=== PATIENT | male | born 1940 | race Caucasian/White ===

== ENCOUNTER 2016-07-30 16:21 | Inpatient (IN) | payer MEDICARE ==
[~2016-07-30] VITALS: Ht 185.4 cm; Wt 99.2 kg
[2016-07-30 16:40] VITALS: BP 107/70; PULSE 121; RESP 12; O2SAT 95
--- NOTE | 2016-07-30 18:03 | ED.REPORT ---
HPI- Male Date of Service July 30, 2016 ED Provider: Kris Pearson MD The pt is a 76 y/o male w/ a hx of urine infections, and colon cancer presenting to the ED complaining of dysuria onset 5 days ago. The pain is intermittent and he experiences an urgency to urinate. He also is experiencing nausea. His last UTI was a month ago, for which he was given antibiotics for, but he was not hospitalized. He saw a Dr. Newman, urologist for his UTI, [phone]. He reports feeling "pretty good" right now. Denies cough, SOB, vomiting , rash. Nursing Notes Stated Complaint: URINARY TRACT INFECTION Chief Complaint: General Complaint Nursing Notes Reviewed: Yes ([employer] not reconciled) Allergies: Coded Allergies: No Known Allergies (Unverified , 07/30/16) Scheduled Aspirin (Aspirin) 325 Mg Tablet 325 MG PO DAILY Finasteride (Finasteride) 5 Mg Tablet 5 MG PO DAILY Insulin Glargine (Lantus U100 Solostar Insulin Pen) 100 Unit/1 Ml Insuln.pen 44 UNIT SUBQ HS Metoprolol Tartrate (Metoprolol Tartrate) 25 Mg Tablet 25 MG PO BID Mirtazapine (Mirtazapine) 15 Mg Tablet 15 MG PO HS Multivitamin (Multivitamins) 1 Each Capsule 1 EACH PO DAILY Pantoprazole DR (Pantoprazole DR) 40 Mg Tablet.dr 40 MG PO QAM PredniSONE (PredniSONE) 1 Mg Tab 1 MG PO Q2DAY alternate with 2mg every other day PredniSONE (PredniSONE) 1 Mg Tab 2 MG PO Q2DAY alternate with 1mg every other day Tamsulosin (Flomax) 0.4 Mg Capsule 0.4 MG PO DAILY Scheduled PRN Simethicone (Gas-X) 80 Mg Tablet 80 MG PO QID PRN PRN For Epigastric Distress Tramadol (Tramadol) 50 Mg Tablet 50-100 MG PO TID PRN PRN For Pain General Time Seen by MD: 18:01 Chief Complaint Dysuria Hx Obtained From: Patient Arrived By: Walk-in Onset Occurred: 5 days ago Symptom Duration: Waxes and wanes Recent Healthcare: No recent hospitalization, Recent doctor visit Similar Sx Previous: Yes Past Medical History Past Medical History polycythemia vera Colon cancer Past Surgical History Gall stone removal Colon and rectum removal Smoking History Unknown if Ever Smoker Social History Other Social History: Good social support Ambulatory Status Independent Review of Systems GI: Reports: Nausea, Denies: Vomiting Male: Reports Dysuria Skin: Denies Rash Complete sys rev & neg: except as marked. Respiratory: Denies: Non-productive cough, Shortness of breath Physical Exam Initial Vital Signs Vital Signs (First) Date Time Temp Pulse Resp B/P Pulse Ox O2 Delivery O2 Flow Rate FiO2 07/30/16 16:40 38.0 121 12 107/70 95 Room Air Initial VS: Reviewed, Vital signs abnormal (fever, tachycardic) Male Genitourinary: No mass, No lesions or rash General/Constitutional: Awake, Alert Fatigued Abdomen: Atraumatic, Soft, Non-tender Colostomy bag Skin: Atraumatic, Color NL, No rash, Warm, Dry Color / Condition: Negative: Diaphoresis present Head / Eyes: Atraumatic, Normocephalic ENT: Atraumatic, Airway patent Neck: Atraumatic, Supple, Full range of motion Respiratory / Chest: Atraumatic, Breath sounds NL, Breath sounds = bilat, No respiratory distress, No rales, No rhonchi, No wheezing Not tachypneic or hypoxic Cardiovascular: Regular rhythm, Heart sounds NL Heart Rate / Rhythm: Positive: Tachycardia Portocath in L chest Back: Atraumatic, Full range of motion Neurologic: Speech NL Mental Status: Positive: Confused ( reports waxing and waning confusion ) Interpretation & Diagnostics Lab Results Interpretation Result Diagram: 07/30/160 07/30/16 183 Test 07/30/16 18:30 07/30/16 20:50 White Blood Count 11.2th/mm3 (3.8-10.1) Red Blood Count 4.29mil/mm3 (4.40-5.80) Hemoglobin 12.2g/dL (13.8-17.2) Hematocrit 36.1% (41.0-50.0) Mean Corpuscular Volume 84.1fL (81-100) Mean Corpuscular Hemoglobin 28.4pg (27.0-35.0) Mean Corpuscular Hemoglobin Concent 33.8% (32.0-37.0) Red Cell Distribution Width 14.2% (12.3-15.4) Platelet Count 174bil/L (150-400) Neutrophils (%) (Auto) 82.1% (40-74) Lymphocytes (%) (Auto) 7.6% (14-46) Monocytes (%) (Auto) 8.9% (4-12) Eosinophils (%) (Auto) 0.4% (0-5) Basophils (%) (Auto) 0.7% (0-3) Sodium Level 137mEq/L (134-144) Potassium Level 4.1mEq/L (3.5-5.2) Chloride Level 101mEq/L (97-108) Carbon Dioxide Level 22mmol/L (18-29) Blood Urea Nitrogen 16mg/dL (8-27) Creatinine 0.88mg/dL (0.76-1.27) Estimat Glomerular Filtration Rate 90mL/min (>59) Glucose Level 200mg/dL (60-99) Lactic Acid Level 1.0mmol/L (0.4-2.0) Calcium Level 9.1mg/dL (8.5-10.1) Total Bilirubin 0.8mg/dL (0.0-1.2) Aspartate Amino Transf (AST/SGOT) 23U/L (0-50) Alanine Aminotransferase (ALT/SGPT) 18U/L (0-44) Alkaline Phosphatase 156U/L (25-160) Total Protein 6.7g/dL (6.4-8.4) Albumin 3.4g/dL (3.4-5.0) Urine Color Yellow (YELLOW) Urine Appearance Turbid (CLEAR,HAZY) Urine pH 5.0 (5.0-8.0) Urine Specific Menan 1.020 (1.003-1.035) Urine Protein 30mg/dL (NEG,TRACE) Urine Glucose (UA) Negativemg/dL (NEGATIVE) Urine Ketones Negativemg/dL (NEGATIVE) Urine Occult Blood Moderate (NEGATIVE) Urine Nitrite Negative (NEGATIVE) Urine Bilirubin Negative (NEGATIVE) Urine Urobilinogen Normalmg/dL (NORMAL) Urine Leukocyte Esterase Large (NEGATIVE) Urine RBC 0-2/hpf (0-2) Urine WBC >50/hpf (0-5) Urine Epithelial Cells Occasional/hpf (NONE-MOD) Urine Crystals None seen (NONE SEEN) Urine Bacteria None/hpf (NONE-FEW) Urine Hyaline Casts None/lpf (NONE) Urine Granular Casts None seen (NONE SEEN) Urine Waxy Casts None seen (NONE SEEN) Urine Red Blood Cell Casts None seen (NONE SEEN) Urine White Blood Cell Casts None seen (NONE SEEN) Urine Mucus None seen (None Seen) Urine Trichomonas None seen (NONE SEEN) Urine Yeast Many (NONE SEEN) Urinalysis Comment None Urine Culture Reflexed Indicated Lab Results Interpretation: CBC positive leukocytosis CMP mild hyperglycemia Lactic acid normal Blood cultures 2 pending Urine with greater than 50 white cells per high-powered field, but interestingly no bacteria are visualized remains the most likely source ECG Interpretation ECG Interpretation: Rate 104 Sinus tachycardia Multiple PVCs Non Specific ST depression of V4,V5,V6 No previous EKG available for comparison Time: 19:34 Interpreted by: ED physician Re-Eval/Medical Decision Med Decision/Clinical Course This is a 76-year-old male presents with worsening urinary symptoms for several days. Now has developed fevers and chills and waxing waning mental status consistent with delirium today according to the . He is currently mentating normally at present. The patient is followed by urology down a [place], [place] (See [facility] for office contact info, it is after-hours now so not able to get records) reports he was treated for some type of urinary tract infection last month. In the department he is febrile, tachycardic. He has also had a previous colon cancer with residual adrenal insufficiency and is unwilling milligram of prednisone daily. The patient receive IV fluids, Tylenol, he was covered with ceftriaxone with laboratories and clinical history again suggesting UTI (greater than 50 white cells per high-power field, although there is no overt bacteria on urinalysis). Additionally given his history of adrenal insufficiency received empiric hydrocortisone. He has had no hypotension or overt hemodynamic instability beyond mild tachycardia which is improving with fluids. The plan is admission. However at this time being informed there may not be any beds available for admission, so a bed search is being initiated. Ultimately after several hours, a bed was made available here at [facility], so the patient is being admitted and the case discussed with the hospitalist. Source of Hx: Old records (none in EMR) Re-Evaluation/Progress : Time of Eval: 22:32 Patient Status: Condition improved Re-Evaluation/Progress Note: May not be any beds available for admit, bed search starting Consultation : Referral / Consult Name: Benedicto Cullen MD Consulted With: Hospitalist Call Returned at: 23:24 Spray Drier: Will see patient, Agrees with eval, Agrees with plan, Accepts admit Differential Diagnosis: Positive: Cystitis, acute, Pyelonephritis, acute, Urinary tract infection, Negative: Abrasion, Abscess, Cellulitis, Inguinal hernia left, Inguinal hernia right, Necrotizing fasciitis, Priapism, Testicular torsion left, Testicular torsion right Counseled Regarding: Diagnosis, Lab results, Need for admission Discharge & Departure Impression: Primary Impression: Urinary tract infection Urinary tract infection type: acute pyelonephritis Qualified Code: N10 - Acute pyelonephritis Additional Impressions: Delirium Sepsis Sepsis type: sepsis due to unspecified organism Qualified Code: A41.9 - Sepsis, unspecified organism Adrenal insufficiency ([place]'s disease) Disposition: ADMITTED TO HOSPITAL Discharge Condition All VS Reviewed: Yes Condition: Stable Scribe Attestation Portions of this note were transcribed by Charles Rodriguez. I, Dr. Pearson personally performed the history, physical exam and medical decision-making; I reviewed and confirmed the accuracy of the information in the transcribed note. Signed by : Radha Barrios, 07/30/16 and 1920. Full Interpretation & Diagnost Lab Results Interpretation Result Diagram: 07/30/16 1830 07/30/16 1830 Test 07/30/16 18:30 07/30/16 20:50 White Blood Count 11.2th/mm3 (3.8-10.1) Red Blood Count 4.29mil/mm3 (4.40-5.80) Hemoglobin 12.2g/dL (13.8-17.2) Hematocrit 36.1% (41.0-50.0) Mean Corpuscular Volume 84.1fL (81-100) Mean Corpuscular Hemoglobin 28.4pg (27.0-35.0) Mean Corpuscular Hemoglobin Concent 33.8% (32.0-37.0) Red Cell Distribution Width 14.2% (12.3-15.4) Platelet Count 174bil/L (150-400) Neutrophils (%) (Auto) 82.1% (40-74) Lymphocytes (%) (Auto) 7.6% (14-46) Monocytes (%) (Auto) 8.9% (4-12) Eosinophils (%) (Auto) 0.4% (0-5) Basophils (%) (Auto) 0.7% (0-3) Sodium Level 137mEq/L (134-144) Potassium Level 4.1mEq/L (3.5-5.2) Chloride Level 101mEq/L (97-108) Carbon Dioxide Level 22mmol/L (18-29) Blood Urea Nitrogen 16mg/dL (8-27) Creatinine 0.88mg/dL (0.76-1.27) Estimat Glomerular Filtration Rate 90mL/min (>59) Glucose Level 200mg/dL (60-99) Lactic Acid Level 1.0mmol/L (0.4-2.0) Calcium Level 9.1mg/dL (8.5-10.1) Total Bilirubin 0.8mg/dL (0.0-1.2) Aspartate Amino Transf (AST/SGOT) 23U/L (0-50) Alanine Aminotransferase (ALT/SGPT) 18U/L (0-44) Alkaline Phosphatase 156U/L (25-160) Total Protein 6.7g/dL (6.4-8.4) Albumin 3.4g/dL (3.4-5.0) Urine Color Yellow (YELLOW) Urine Appearance Turbid (CLEAR,HAZY) Urine pH 5.0 (5.0-8.0) Urine Specific Menan 1.020 (1.003-1.035) Urine Protein 30mg/dL (NEG,TRACE) Urine Glucose (UA) Negativemg/dL (NEGATIVE) Urine Ketones Negativemg/dL (NEGATIVE) Urine Occult Blood Moderate (NEGATIVE) Urine Nitrite Negative (NEGATIVE) Urine Bilirubin Negative (NEGATIVE) Urine Urobilinogen Normalmg/dL (NORMAL) Urine Leukocyte Esterase Large (NEGATIVE) Urine RBC 0-2/hpf (0-2) Urine WBC >50/hpf (0-5) Urine Epithelial Cells Occasional/hpf (NONE-MOD) Urine Crystals None seen (NONE SEEN) Urine Bacteria None/hpf (NONE-FEW) Urine Hyaline Casts None/lpf (NONE) Urine Granular Casts None seen (NONE SEEN) Urine Waxy Casts None seen (NONE SEEN) Urine Red Blood Cell Casts None seen (NONE SEEN) Urine White Blood Cell Casts None seen (NONE SEEN) Urine Mucus None seen (None Seen) Urine Trichomonas None seen (NONE SEEN) Urine Yeast Many (NONE SEEN) Urinalysis Comment None Urine Culture Reflexed Indicated X-Ray Chest Interpretation Chest Xray Interpretation: IMPRESSION: Patchy opacity in left lung base which represent atelectasis or pneumonia. Please correlate with clinical and laboratory data. Dictated by: Marzena Peña MD, PhD on 07/30/2016 at 18:56 Approved by: Marzena Peña MD, PhD on 07/30/2016 at 18:56 View: Portable, 1 view Interpretation / Wet Read by: Interpret - Radiologist Kris Pearson MD July 30, 2016 18:03 Charles Rodriguez July 30, 2016 18:27
[2016-07-30] MEDS ORDERED: 0.9% Sodium Chloride 1,000 ML IV ONE (18:05)
[2016-07-30 18:40] LABS: BASOPHILS % (AUTO) 0.7 % (0-3); EOSINOPHILS % (AUTO) 0.4 % (0-5); MONOCYTES % (AUTO) 8.9 % (4-12); Mean Corpuscular Hemoglobin 28.4 pg (27.0-35.0); Mean Corpuscular Volume 84.1 fL (81-100); NEUTROPHILS % (AUTO) 82.1 % (40-74); Platelet Count 174 bil/L (150-400)
[2016-07-30] MEDS ORDERED: cefTRIAXone Inj 2,000 MG in Dextrose 5% Minibag Plus 50 ML IV ONE (18:40)
--- NOTE | 2016-07-30 18:58 | DRSVH ---
PROCEDURE: X-RAY CHEST ONE VIEW, PORTABLE ([id number]) INDICATIONS: fever TECHNIQUE: One view of the chest was acquired. COMPARISON: None. FINDINGS: Surgical changes and devices: Left chest wall Port-A-Cath is noted. Lungs and pleura: Patchy opacity noted in the left lung base. Trace left sided pleural effusion not ed. Mediastinum: Mediastinal contours appear normal. Heart size is normal. Bones and chest wall: No suspicious bony lesions. Overlying soft tissues appear unremarkable. IMPRESSION: Patchy opacity in left lung base which represent atelectasis or pneumonia. Please corre late with clinical and laboratory data. Dictated by: Marzena Peña MD, PhD on 07/30/2016 at 18:56 Approved by: Marzena Peña MD, PhD on 07/30/2016 at 18:56
[2016-07-30] MEDS ORDERED: Hydrocortisone 50 mg/mL 2 mL Inj IVPUSH ONE (19:40)
[2016-07-30] MEDS ORDERED: PANT40TA3 PO (20:14)
[2016-07-30] MEDS ORDERED: METO25TA6 PO (20:14)
[2016-07-30] MEDS ORDERED: TRAM50TA2 PO (20:14)
[2016-07-30] MEDS ORDERED: PRD1T PO (20:14)
[2016-07-30] MEDS ORDERED: SIME80TA53 PO (20:14)
[2016-07-30] MEDS ORDERED: INSU100I13 SUBQ (20:14)
[2016-07-30] MEDS ORDERED: MIRT15TA6 PO (20:14)
[2016-07-30] MEDS ORDERED: TAMS0.4C98 PO (20:14)
[2016-07-30] MEDS ORDERED: FINA5TAB9 PO (20:14)
[2016-07-30] MEDS ORDERED: ASPI325T32 PO (20:14)
[2016-07-30] MEDS ORDERED: MULT1CAP33 PO (20:14)
[2016-07-30 21:35] LABS: APPEARANCE,URINE TURBID (CLEAR,HAZY); COLOR,URINE YELLOW (YELLOW); OCCULT BLOOD,URINE MODERATE (NEGATIVE); UROBILINOGEN,URINE NORMAL (NORMAL); YEAST,URINE MANY (NONE SEEN)
[2016-07-30 22:28] VITALS: BP 136/75; PULSE 89; RESP 18; O2SAT 95
[2016-07-30] MEDS ORDERED: Polyethylene Glycol (PEG) 17 Gm Powder PO PRN (23:40)
[2016-07-30] MEDS ORDERED: Alum-Mag Hydrox-Simeth 30 mL Suspension PO PRN (23:40)
[2016-07-30] MEDS ORDERED: Ondansetron 2 mg/mL 2 mL Inj IVPUSH PRN (23:40)
[2016-07-31] VITALS (9 sets, daily range): BP systolic 113–149; BP diastolic 65–75; PULSE 68–110; RESP 16–20; O2SAT 95–99
[2016-07-31] MEDS: 0.9% Sodium Chloride 1,000 ML IV SCH ×3 (01:20→20:59)
--- NOTE | 2016-07-31 01:37 | PCM.HPMED ---
Subjective Date of Service July 31, 2016 Primary Provider: Admitting Physician: Benedicto Cullen MD Primary Care Physician: Meagan Attending Physician: Benedicto Cullen MD Chief Complaint: General illness. History of Present Illness: Mr. Adal Robert is a very pleasant 76-year-old gentleman presenting to the emergency department with complaints of dysuria for 5 days. He reports fevers and chills and waxing and waning mental status consistent with delirium, according to his who is a nurse. He reports long history of difficult to control urinary tract infections. He is followed by urology from [facility], Dr. Newman, urologist for his UTI, . Patient states that one month ago following complicated endoscopic removal of inflamed choledocholithiasis status post cholecystectomy, he develops another UTI for which she was treated in [facility]. He has a complicated past medical history significant for colon cancer with total colectomy and ostomy roughly 18 months ago with unspecified rounds of chemotherapy. Residual adrenal insufficiency, He also has insulin requiring diabetes with very poor control over the past year with blood sugars as high as 240 daily. He reports confusion , significant dysuria, abdominal pain, fevers, mild nausea. He denies vomiting , syncope, chest pain, shortness of breath, change in ostomy output, hematochezia, hematemesis, hematuria. He also reports significant weight loss of 30 pounds over the past 3 months "without trying." He admits that his appetite has significantly decreased since his total colectomy roughly 18 months ago. Upon admission to this [facility] emergency department vitals are as follows; temperature 38.0, pulse of 121, respiration rate 12, blood pressure 107/70, pulse ox 95% on room air. White count 11.2, hemoglobin 12.2, platelets 174, neuts 82.1, lymph 7.6. Sodium 137 potassium 4.1 chloride 101 carbon dioxide 22 16 creatinine 0.88 glucose 200, lactic acid 1.0 AST ALT alkaline phosphatase normal. UA; yellow, turbid, urine protein 30, moderate occult blood, large leukocyte esterase, greater than 50 white cell count, occasional epithelials, no bacteria, no casts, many yeast. The patient receive IV fluids, Tylenol, he was covered with ceftriaxone with laboratories and clinical history again suggesting UTI (greater than 50 white cells per high-power field, although there is no overt bacteria on urinalysis). Additionally given his history of adrenal insufficiency received empiric hydrocortisone. He has had no hypotension or overt hemodynamic instability beyond mild tachycardia which is improving with fluids. Review of Systems: A comprehensive review of systems was conducted with the patient and found to be negative except as above in the History of Present Illness. Allergies Coded Allergies: No Known Allergies (Unverified , 07/30/16) Home Medications Aspirin (Aspirin) 325 Mg Tablet 325 MG PO DAILY Finasteride (Finasteride) 5 Mg Tablet 5 MG PO DAILY Insulin Glargine (Lantus U100 Solostar Insulin Pen) 100 Unit/1 Ml Insuln.pen 44 UNIT SUBQ HS Metoprolol Tartrate (Metoprolol Tartrate) 25 Mg Tablet 25 MG PO BID Mirtazapine (Mirtazapine) 15 Mg Tablet 15 MG PO HS Multivitamin (Multivitamins) 1 Each Capsule 1 EACH PO DAILY Pantoprazole DR (Pantoprazole DR) 40 Mg Tablet.dr 40 MG PO QAM PredniSONE (PredniSONE) 1 Mg Tab 1 MG PO Q2DAY alternate with 2mg every other day PredniSONE (PredniSONE) 1 Mg Tab 2 MG PO Q2DAY alternate with 1mg every other day Tamsulosin (Flomax) 0.4 Mg Capsule 0.4 MG PO DAILY PMH polycythemia vera Colon cancer Insulin requiring diabetes. Sleep apnea Recurrent urinary tract infections Surgical History Gall stone removal Colon and rectum removal Ostomy in place Family History Could not report. Social History Hx Alcohol Use: No Hx Substance Use: No Hx Tobacco Use: No Additional Information Lives at home with roommate. Exam Vital Signs Vital Sign - Last Date Time Temp Pulse Resp B/P Pulse Ox O2 Delivery O2 Flow Rate FiO2 07/31/16 00:36 108 20 136/75 97 Room Air 07/31/16 00:31 36.6 Intake and Output 07/30/16 07/30/16 07/31/16 Cumulative From/Thru 15:00 23:00 07:00 07/30/16 16:40 - 07/31/16 00:31 Intake Total 1000 ml 1000 ml Balance 1000 ml 1000 ml Intake IV Total 1000 ml 1000 ml Bladder Scan Volume Amount 201 MLS. Exam General: Elderly gentleman sitting in bed in no acute distress. well-developed , well-nourished, appropriately interactive HEENT: Normocephalic, atraumatic. External ears without defect. Pupils equal, round, and reactive to light and accommodation. Anicteric sclerae, moist conjunctivae, and no lid lag. Oropharynx free of erythema and cobble stoning with moist mucosa. Neck: Supple with full range of motion. No jugular venous distension. No bruits. No lymphadenopathy or thyromegaly. Cardiovascular: Regular rate and rhythm with moderate systolic flow murmurs, with no rubs, or gallops appreciated Pulmonary: Clear to auscultation bilaterally with no crackles, wheezes, or rhonchi. Normal respiratory effort with no use of accessory muscles. Abdomen: Bowel tones present. Soft, nontender, nondistended. No hepatosplenomegaly or masses appreciated. Extremities: No clubbing, cyanosis, edema, or lymphadenopathy appreciated. Skin: Normal temperature, turgor, and texture; no rash, ulcers, or subcutaneous nodules appreciated. Neurological: Cranial nerves grossly intact. Normal muscle strength, tone, and bulk. Reflexes, coordination, and sensory function within normal limits. No known gait impairment. Psychiatric: Normal mood and affect. Alert and oriented to person, place, and time. Genitourinary: Intertriginous skin folds with very mild erythema. Penis nonfluctuant no erythema or edema, no drainage. Post chemotherapy skin changes slightly contracted. Lab and Diagnostics Result Diagram: 07/30/16182907/30/161829 X-Rays, CTs and MRIs X-RAY CHEST ONE VIEW, PORTABLE IMPRESSION: Patchy opacity in left lung base which represent atelectasis or pneumonia. Please correlate with clinical and laboratory data. Dictated by: Marzena Peña MD, PhD on 07/30/2016 at 18:56 Assessment & Plan Mr. Adal Robert is a very pleasant 76-year-old gentleman presenting to the emergency department with complaints of dysuria for 5 days. He reports fevers and chills and waxing and waning mental status consistent with delirium, according to his who is a nurse. He reports long history of difficult to control urinary tract infections. He is followed by urology from [facility], Dr. Newman, urologist for his UTI, . Patient states that one month ago following complicated endoscopic removal of inflamed choledocholithiasis status post cholecystectomy, he develops another UTI for which she was treated in [facility]. He has a complicated past medical history significant for colon cancer with total colectomy and ostomy roughly 18 months ago with unspecified rounds of chemotherapy. Residual adrenal insufficiency, He also has insulin requiring diabetes with very poor control over the past year with blood sugars as high as 240 daily. He reports confusion , significant dysuria, abdominal pain, fevers, mild nausea. He denies vomiting , syncope, chest pain, shortness of breath, change in ostomy output, hematochezia, hematemesis, hematuria. He also reports significant weight loss of 30 pounds over the past 3 months "without trying." He admits that his appetite has significantly decreased since his total colectomy roughly 18 months ago. 1. Sepsis, present on admission. Improving. - Admission temperature 38.0, pulse 121, white count 11.2, neuts 82.1, UA positive. - Urinary tract infection most likely source, Possible bacteria, more likely fungal. - Significant risk factors with highly uncontrolled diabetes for one year, and long history of recurrent urinary tract infections. - Fungitell ordered. It's rare, but may consider galactomannan test. - Consider infectious disease consult. - Patient on IV ceftriaxone. - Blood cultures 2 pending. - Urinary culture pending. 2. Acute on chronic urinary tract infection, present on admission. Active. - UA; Yellow, turbid, 30 protein, moderate occult blood, large leukocyte esterase, greater than 50 WBC, occasional epithelial, no bacteria, no casts, many yeast. - Urine culture pending. - Treatment as above. 3. Insulin requiring diabetes mellitus, present on admission. Active. - Continue home Lantus. - Carb consistent diet. - A1c pending. - Day team to consider correctional nutritional insulin. 4. Residual adrenal insufficiency. Present on admission. Active. - Patient received hydrocortisone 100 mg stress dose in the ED. - Continue home prednisone regimen. (1 mg and 2 mg alternating doses) 5. BPH, present on admission. Active. - Continue home finasteride 5 mg daily. 6. Significant weight loss, present on admission. Active. - Patient states he has lost 30 pounds in the last 3 months without trying. - Etiology at this point unknown. Risk factors include uncontrolled diabetes and previous history of colon cancer, with total colectomy. 7. Chronic obstructive sleep apnea, present on admission. Active. - O2 nasal cannula at night for now until patient's brings in home CPAP machine. Continue other home medications as follows: Continue home aspirin 325 daily. Continue home metoprolol tartrate 25 mg twice a day. Acetaminophen for mild pain when necessary. Bowel regimen Senna and MiraLAX scheduled and PRN. Zofran when necessary for nausea and vomiting. SubQ heparin held for now. SCDs in place. Disposition: Patient has been admitted under inpatient status. Discharge is dependent upon sepsis and urinary tract infection. Pain Evaluation: Adequate Pain Control Resuscitation Status: CPR: Attempt Resuscitation Attending Statement The patient was seen and examined together with Dr. Murillo on 07/30 and I agree with the history, exam and plan as outlined in the note above. HENRIQUE MURILLO DO July 31, 2016 01:37 Benedicto Cullen MD July 31, 2016 04:49
[2016-07-31] MEDS: cefTRIAXone Inj 2,000 MG in Dextrose 5% Minibag Plus 50 ML IV SCH ×2 (05:59→17:41)
--- NOTE | 2016-07-31 06:18 | NUR ---
Arrival to [facility] room 3025 Patient arrived at 0020. alert and orientedx3 able to make needs known. patient reports "feeling fuzzy, not myself" sleepy. falling asleep during admission assessment. med rec completed with home list. patient reports chronic neck pain relieved with positioning. Patient reports "yeasty" areas in groin. Patient will not let me assess his groin area. buttock is red and blanchable patient upset that I had to look at his butt and states "thats just embarrassing don't" reinforced the importance patient states "I get it but just don't" Patient reports his butt is infected. no infected areas visible. port infusing TKO. vitals stable. patient reports sleep apnea with CPAP. CPOX in place patient desat to 80% on RA. placed on 2L via NC while sleeping. patient states "I will have my bring in my cpap." patient reports burning, pain, hesitancy, with urination. will continue to monitor. Addendum: 07/31/16 at 0624 by HEIDI LOPEZ RN ARRIVAL TO [facility] ROOM 3027 Error in room number
[2016-07-31] MEDS ORDERED: Glucose 40% Oral Gel 15 Gm Tube PO PRN (07:55)
[2016-07-31] MEDS ORDERED: Dextrose 10% 250 ML IV PRN (07:55)
[2016-07-31] MEDS: Pantoprazole 40 mg ER24 Tablet PO SCH (07:58)
[2016-07-31] MEDS: predniSONE 1 mg Tablet PO SCH (08:01)
[2016-07-31] MEDS: Insulin LISPRO 300 Unit/3 mL Inj SUBQ SCH ×4 (08:54→22:00)
[2016-07-31] MEDS ORDERED: predniSONE 1 mg Tablet PO SCH ×2 (09:00)
[2016-07-31] MEDS: 0.9% Sodium Chloride 250 ML IV SCH (09:28)
[2016-07-31] MEDS ORDERED: Sodium Chloride LOK Flush 10 mL Syringe IVFLUSH PRN ×2 (09:30)
[2016-07-31] MEDS ORDERED: HepLOK Flush 100 unit/mL 5 mL Inj IVFLUSH PRN (09:30)
--- NOTE | 2016-07-31 13:38 | NUR ---
Evaluation completed. Please go to "Notes" then click on "Assessments and Notes" (bottom left corner of screen). Then select appropriate discipline tab on top of screen.
--- NOTE | 2016-07-31 16:09 | NUR ---
Social Work-initial assessment: Data:See initial assessment. Pt is a 76 y/o male who was admitted on 07/30/16 for sepsis per H&P. Pt's insurance is [employer] and PCP is Dr. Denilson Vazquez. EMR Reviewed. ROSALIO met with pt and Fabian [phone] to discuss discharge planning, SW role explained. Pt is alert and oriented x3. Pt resides in a [facility] and they are traveling from [place]. Pt does not use any DME and drives. Pt has no HH or SNF history. Pt has no group home care insurance or VA benefits. SW discussed DPOA/ advanced directive, pt confirms he has not completed this and is not interested in any information. Per Pt and they do not anticipate any discharge needs. SW provided phone number and plan on white board in room. No anticipated discharge needs. SW will continue to follow if needs arise. Assessment:Pt who is independent at baseline. Plan:Pt to discharge back to his [facility] when medically stable. No anticipated discharge needs. ROSALIO will continue to follow if needs arise. AUGUSTINE Willis Addendum: 07/31/16 at 1614 by PERFECTO KARIMI Amended: Links added.
[2016-07-31] MEDS: Ketorolac 15 mg/mL Inj IVPUSH PRN (16:27)
--- NOTE | 2016-07-31 18:44 | NUR ---
UOP/Temp Pt seen to be voiding frequently with small amts, averaging 80mL. PVR done, 289mL noted. MD notified. Extra 1x dose of Flomax administered. Pt c/o pain at start of stream and HR noted to increase up to 150 BPM when voiding-tele orders recd. 1x temp noted, provider notified, will continue to monitor.
[2016-07-31] MEDS: Insulin GLARgine 100 Unit/mL Syringe SUBQ SCH ×2 (20:53→20:59)
[2016-08-01] VITALS (9 sets, daily range): BP systolic 131–163; BP diastolic 67–91; PULSE 62–102; RESP 18; O2SAT 97–98
--- NOTE | 2016-08-01 00:20 | PCM.PNMED ---
Subjective Date of Service July 31, 2016 Subjective Patient is seen and examined. 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 He states that his pain is not under control, every time he tries to urinate the pain comes back. If he is not moving her laying still the pain is not happening. Staff says when he gets up to urinate his becoming tachycardic. He has no fevers or chills. States that he had a similar event during the hospitalization when he had colectomy, he had to use a urine Estrella and he did not like it, states that no one will be able to get up Estrella in him because of the level of pain he had to endure. States currently his pain is in the penis when he urinates, it is a deep pain. He denies hematuria, nephrolithiasis. Apparently he declined pain medication prior to this morning. He has no abdominal pain. States that he does have some level of decubitus ulcers are starting as he sits most of the time. Exam Vital Signs Vital Sign - Last Date Time Temp Pulse Resp B/P Pulse Ox O2 Delivery O2 Flow Rate FiO2 07/31/16 06:07 101 07/31/16 05:13 36.4 20 113/70 99 Nasal Cannula 2.00 Intake and Output 07/30/16 07/30/16 07/31/16 Cumulative From/Thru 15:00 23:00 07:00 07/30/16 16:40 - 07/31/16 06:06 Intake Total 1000 ml 585 ml 1585 ml Output Total 250 ml 250 ml Balance 1000 ml 335 ml 1335 ml Intake Oral 190 ml 190 ml IV Total 1000 ml 395 ml 1395 ml Output Urine Total 250 ml 250 ml Bladder Scan Volume Amount 201 MLS. Exam General: Elderly gentleman sitting in bed in no acute distress. well-developed , well-nourished, appropriately interactive HEENT: Normocephalic, atraumatic. External ears without defect. Pupils equal, round, and reactive to light and accommodation. Anicteric sclerae, moist conjunctivae, and no lid lag. . Neck: Supple with full range of motion. No jugular venous distension. Cardiovascular: Regular rate and rhythm with moderate systolic flow murmurs, with no rubs, or gallops appreciated Pulmonary: Clear to auscultation bilaterally with no crackles, wheezes, or rhonchi. Normal respiratory effort with no use of accessory muscles. Abdomen: Bowel tones present. Soft, nontender, nondistended. No hepatosplenomegaly or masses appreciated. Ostomy site is Clean and dry Extremities: No clubbing, cyanosis, edema, or lymphadenopathy appreciated. Skin: Normal temperature, turgor, and texture; no rash, ulcers, or subcutaneous nodules appreciated. Neurological: No focal deficits Psychiatric: Normal mood and affect. Alert and oriented to person, place, and time. IVs and Medications Medications Reviewed: Medications were reviewed in detail Lab and Diagnostics Result Diagram: 07/30/16182907/30/161829 X-Rays, CTs and MRIs X-RAY CHEST ONE VIEW, PORTABLE IMPRESSION: Patchy opacity in left lung base which represent atelectasis or pneumonia. Please correlate with clinical and laboratory data. Dictated by: Marzena Peña MD, PhD on 07/30/2016 at 18:56 Assessment & Plan Mr. Adal Robert is a very pleasant 76-year-old gentleman presenting to the emergency department with complaints of dysuria for 5 days. He reports fevers and chills and waxing and waning mental status consistent with delirium, according to his who is a nurse. He reports long history of difficult to control urinary tract infections. He is followed by urology from [facility], Dr. Newman, urologist for his UTI, . Patient states that one month ago following complicated endoscopic removal of inflamed choledocholithiasis status post cholecystectomy, he develops another UTI for which she was treated in [facility]. He has a complicated past medical history significant for colon cancer with total colectomy and ostomy roughly 18 months ago with unspecified rounds of chemotherapy. Residual adrenal insufficiency, He also has insulin requiring diabetes with very poor control over the past year with blood sugars as high as 240 daily. He reports confusion , significant dysuria, abdominal pain, fevers, mild nausea. He denies vomiting , syncope, chest pain, shortness of breath, change in ostomy output, hematochezia, hematemesis, hematuria. He also reports significant weight loss of 30 pounds over the past 3 months "without trying." He admits that his appetite has significantly decreased since his total colectomy roughly 18 months ago. 1. Sepsis, present on admission. Improving. - Admission temperature 38.0, pulse 121, white count 11.2, neuts 82.1, UA positive. - Urinary tract infection most likely source, Possible bacteria, more likely fungal is really not clear whether this is a bacterial or even fungal infection keeping in mind that fungal and infections are extremely rare even in diabetics. He reports that he has some kind of inflammation going on that resulted in pyuria. He feels that it is important to get his prior records to understand his past history. - Significant risk factors with highly uncontrolled diabetes for one year, and long history of recurrent urinary tract infections. - Consider infectious disease consult: ID is not available in the hospital over the weekend, if patient is still here on Tuesday, hospitalist team may contact Dr. Mitchell - Patient on IV ceftriaxone. - Blood cultures 2 NGTD - Urinary culture pending: NGTD -- The patient does not seem to know the basis of his prior urology visit seems to his urologist. It is not clear whether he was seen for BPH or some kind of strictures. He is currently on finasteride and tamsulosin. -- The bladder scan showed 3 70 mL of retention patient is unable to void even though it has been painful for him pain medications were added ketorolac IV morphine IV -- The patient's prior records from his urologist are requested: However is not clear on a weekend if we can get them --Urologist here at [facility] dr. tinajero is contacted by phone: He states that without the urine culture, and the prior records. He is not much for him to do other than cystoscopy or retrograde urethrogram. He would like for us to try double dose of tamsulosin. 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 Acute on chronic urinary tract infection, present on admission. Active. - UA; Yellow, turbid, 30 protein, moderate occult blood, large leukocyte esterase, greater than 50 WBC, occasional epithelial, no bacteria, no casts, many yeast. - Urine culture pendin: NGTD - Treatment as above. 3. Insulin requiring diabetes mellitus, present on admission. Active. - Continue 1/2 home Lantus.-Patient's Lantus is reduced in half as patient did not need much insulin all day 07/30 and he is still not hypoglycemic order submitted for Lantus 22 units to be given at at bedtime - Carb consistent diet. - A1c pending. 4. Residual adrenal insufficiency. Present on admission. Active. - Patient received hydrocortisone 100 mg stress dose in the ED. - Continue home prednisone regimen. (1 mg and 2 mg alternating doses) 5. BPH, present on admission. Active. - Continue home finasteride 5 mg daily. 6. Significant weight loss, present on admission. Active. - Patient states he has lost 30 pounds in the last 3 months without trying. - Etiology most likely the total colectomy. 7. Chronic obstructive sleep apnea, present on admission. Active. - O2 nasal cannula at night for now until patient's brings in home CPAP machine. Continue other home medications as follows: Continue home aspirin 325 daily. Continue home metoprolol tartrate 25 mg twice a day. Acetaminophen for mild pain when necessary. Bowel regimen Senna and MiraLAX scheduled and PRN. Zofran when necessary for nausea and vomiting. SubQ heparin held for now. SCDs in place. Disposition: Patient has been admitted under inpatient status. Discharge is dependent upon sepsis and urinary tract infection. Pain Evaluation: Pain not Controlled Resuscitation Status: CPR: Attempt Resuscitation Time spent 30 min Ly Sapp DO July 31, 2016 07:10
[2016-08-01] MEDS: Ketorolac 15 mg/mL Inj IVPUSH PRN (04:47)
[2016-08-01] MEDS: cefTRIAXone Inj 2,000 MG in Dextrose 5% Minibag Plus 50 ML IV SCH ×2 (04:55→17:20)
[2016-08-01] MEDS ORDERED: Lidocaine 5% 35.5 Gm Ointment TOPICAL PRN (07:45)
[2016-08-01] MEDS: 0.9% Sodium Chloride 1,000 ML IV SCH ×2 (07:54→17:20)
[2016-08-01] MEDS: Pantoprazole 40 mg ER24 Tablet PO SCH (07:56)
[2016-08-01] MEDS: Insulin LISPRO 300 Unit/3 mL Inj SUBQ SCH ×4 (07:57→21:43)
[2016-08-01] MEDS: 0.9% Sodium Chloride 250 ML IV SCH (08:00)
[2016-08-01] MEDS ORDERED: predniSONE 1 mg Tablet PO SCH (09:00)
--- NOTE | 2016-08-01 10:27 | NUR ---
Social Work-readiness for discharge: Data:EMR Reviewed. Pt is on day 2 of hospitalization for sepsis and UTI per H&P. Pt is not medically for discharge at this time, anticipate 1-2 more days. [facility] . Pt has been up independent in his room. ST is involved with pt, but anticipate home. Pt and declines any services at discharge. Pt's to provide transport home. No anticipated discharge needs. SW will continue to follow if needs arise. Assessment:Pt who is independent at baseline. Plan:Pt to discharge back to [facility] when medically stable. No anticipated discharge needs. SW will continue to follow if needs arise. AUGUSTINE Willis
[2016-08-01 11:21] LABS: Mean Corpuscular Volume 85.7 fL (81-100)
--- NOTE | 2016-08-01 15:07 | NUR ---
UOP/ambulation Pt up and voiding into urinal, noted a decrease in discomfort since yesterday. PVR at 95mL today, down significantly from yesterday. Pt requested to ambulate in the unit, made 1 lap 2 different times. c/o weakness after 2nd lap. at bedside. Pt refuses help with ostomy, empties it himself and or with 's help.
--- NOTE | 2016-08-01 17:07 | DRSVH ---
PROCEDURE: US RETROPERITONEAL SONOGRAM ([id number]) INDICATIONS: fungal infection TECHNIQUE: Real-time scanning was performed of the kidneys and bladder, with image documentation. COMPARISON: None. FINDINGS: Kidneys: Kidneys are normal in size. Right kidney measures 11.9 cm long; left kidney measures 13.6 cm long. Right renal cortical thickness is 1.0 cm; left renal cortical thickness is 1.2 cm. Renal c ortical echotexture is normal. No hydronephrosis or nephrolithiasis. No suspicious solid mass lesio ns. 2.0 x 1.6 x 1.4 cm cyst noted in the right kidney. 2.5 x 2.5 x 1.9 cm cyst noted in the left kid arnulfo. Bladder: The patient voided prior to ultrasound examination. The urinary bladder is not well seen a nd secondary to nondistention and cannot be evaluated. Miscellaneous: No free pelvic fluid. IMPRESSION: Bilateral renal cysts. Dictated by: Marzena Peña MD, PhD on 08/01/2016 at 17:04 Approved by: Marzena Peña MD, PhD on 08/01/2016 at 17:06
[2016-08-01] MEDS: Insulin GLARgine 100 Unit/mL Syringe SUBQ SCH ×2 (21:00→21:42)
--- NOTE | 2016-08-02 00:02 | PCM.PNMED ---
Subjective Date of Service August 02, 2016 Subjective Patient is ambulating in the hallways without the use of walker, feeling much better. He states that there has been significant improvement in his functional ability since coming to the hospital. His is present today during the interview and she states that patient had ureteral stricture in the past, however she is not sure what kind of management was done. Patient's insulin dosing significant relief with increased dose of tamsulosin. He states that he has had yeast urinary infections in the past. He sometimes buys Monistat 7 and uses it. Patient is sometimes breaking down teary eyed. Patient has no other concerns Exam Vital Signs Vital Sign - Last Date Time Temp Pulse Resp B/P Pulse Ox O2 Delivery O2 Flow Rate FiO2 08/01/16 21:11 36.8 62 18 146/72 98 Room Air 08/01/16 04:27 2.00 Intake and Output 08/01/16 08/01/16 08/02/16 Cumulative From/Thru 15:00 23:00 07:00 07/30/16 16:40 - 08/01/16 22:43 Intake Total 989 ml 5383 ml Output Total 790 ml 2110 ml Balance 199 ml 3273 ml Intake Oral 320 ml 1164 ml IV Total 669 ml 4219 ml Output Urine Total 790 ml 2110 ml # Voids 1 # Bowel Movements 1 Exam Gen.: No acute distress HEENT: Normocephalic, atraumatic Heart: Regular rate and rhythm. Lungs: Clear to auscultation or wheezes Abdomen nontender and nondistended ostomy site clean and dry\\ Skin: Port-A-Cath is present on the left chest wall Extremities: Negative for edema exam: Patient declined IVs and Medications IV Fluids Decreased to 30 mL/h normal saline Medications Reviewed: Medications were reviewed in detail Lab and Diagnostics Result Diagram: 08/01/16 1100 08/01/16 1100 X-Rays, CTs and MRIs X-RAY CHEST ONE VIEW, PORTABLE IMPRESSION: Patchy opacity in left lung base which represent atelectasis or pneumonia. Please correlate with clinical and laboratory data. Dictated by: Marzena Peña MD, PhD on 07/30/2016 at 18:56 Retroperitoneal ultrasound 08/01/16 Kidneys: Kidneys are normal in size. Right kidney measures 11.9 cm long; left kidney measures 13.6 cm long. Right renal cortical thickness is 1.0 cm; left renal cortical thickness is 1.2 cm. Renal cortical echotexture is normal. No hydronephrosis or nephrolithiasis. No suspicious solid mass lesions. 2.0 x 1.6 x 1.4 cm cyst noted in the right kidney. 2.5 x 2.5 x 1.9 cm cyst noted in the left kidney. Bladder: The patient voided prior to ultrasound examination. The urinary bladder is not well seen and secondary to nondistention and cannot be evaluated. Miscellaneous: No free pelvic fluid. IMPRESSION: Bilateral renal cysts. Dictated by: Marzena Peña MD, PhD on 08/01/2016 at 17:04 Approved by: Marzena Peña MD, PhD on 08/01/2016 at 17:06 Assessment & Plan Mr. Adal Robert is a very pleasant 76-year-old gentleman presenting to the emergency department with complaints of dysuria for 5 days. He reports fevers and chills and waxing and waning mental status consistent with delirium, according to his who is a nurse. He reports long history of difficult to control urinary tract infections. He is followed by urology from [facility], Dr. Newman, urologist for his UTI, . Patient states that one month ago following complicated endoscopic removal of inflamed choledocholithiasis status post cholecystectomy, he develops another UTI for which she was treated in [facility]. He has a complicated past medical history significant for colon cancer with total colectomy and ostomy roughly 18 months ago with unspecified rounds of chemotherapy. Residual adrenal insufficiency, He also has insulin requiring diabetes with very poor control over the past year with blood sugars as high as 240 daily. He reports confusion , significant dysuria, abdominal pain, fevers, mild nausea. He denies vomiting , syncope, chest pain, shortness of breath, change in ostomy output, hematochezia, hematemesis, hematuria. He also reports significant weight loss of 30 pounds over the past 3 months "without trying." He admits that his appetite has significantly decreased since his total colectomy roughly 18 months ago. 1. Sepsis secondary to Acute on chronic urinary tract infection, present on admission. Bacterial infection is ruled out Active. --- Significant risk factors with highly uncontrolled diabetes for one year, and long history of recurrent urinary tract infections. -- Admission temperature 38.0, pulse 121, white count 11.2, neuts 82.1, UA positive for white cells but no bacteria, culture grew greater than 100,000 CFU yeast: Patient is started on 200 mg fluconazole daily - UA; Yellow, turbid, 30 protein, moderate occult blood, large leukocyte esterase, greater than 50 WBC, occasional epithelial, no bacteria, no casts, many yeast. -- Patient on IV ceftriaxone: Consider stopping on 08/02, patient is significantly better. He will have received at least 3 doses of IV ceftriaxone -- The bladder scan showed 3 70 mL of retention patient is able to void even though it has been painful for him pain medications were added ketorolac IV morphine IV --Urologist here at [facility] dr. tinajero is contacted by phone: He states that without the urine culture, and the prior records. He is not much for him to do other than cystoscopy or retrograde urethrogram. He would like for us to try double dose of tamsulosin. 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 Patient is feeling better. Patient's home done records from his urologist are not received so far. Hospitalist Team will need to try again on . Based on the records and patient presentation Dr. Carter will be available to see the patient if need be. We appreciate his involvement and recommendations. 2. Insulin requiring diabetes mellitus, present on admission. Active. - Continue 1/2 home Lantus.-Patient's Lantus is reduced in half as patient did not need much insulin all day 07/30 and he is still not hypoglycemic order submitted for Lantus 22 units to be given at at bedtime - Carb consistent diet. - A1c =8.4 3. Residual adrenal insufficiency. Present on admission. Active. - Patient received hydrocortisone 100 mg stress dose in the ED. - Continue home prednisone regimen. (1 mg and 2 mg alternating doses) 4. BPH, present on admission. Active. - Continue home finasteride 5 mg daily. -- Tamsulosin 0.8 Mg Daily 5. Significant weight loss, present on admission. Active. - Patient states he has lost 30 pounds in the last 3 months without trying. - Etiology most likely the total colectomy. 6. Chronic obstructive sleep apnea, present on admission. Active. - O2 nasal cannula at night for now until patient's brings in home CPAP machine. Continue other home medications as follows: Continue home aspirin 325 daily. Continue home metoprolol tartrate 25 mg twice a day. Acetaminophen for mild pain when necessary. Bowel regimen Senna and MiraLAX scheduled and PRN. Zofran when necessary for nausea and vomiting. SCDs in place. Disposition: Patient has been admitted under inpatient status. Discharge is dependent upon sepsis and urinary tract infection. Patient is clinically much improved after hydration, improved dose of tamsulosin. Fluconazole treatment is initiated for his fungal infection. He wants to go home to [place] if she is clinically better. Consider ID consult if there is a concern about patient's clinical improvement and progress. Follow fungitell, galactomannan labs. Possible DC in 1-2 days Pain Evaluation: Adequate Pain Control VTE Prophylaxis: Sub-Q Heparin (Unfractionated) VTE Mechanical Devices: Intermittant Pneumatic CD Resuscitation Status: CPR: Attempt Resuscitation Time spent 35 min Ly Sapp DO August 02, 2016 00:02 Ly Sapp DO August 02, 2016 00:02
[2016-08-02] MEDS: 0.9% Sodium Chloride 1,000 ML IV SCH (00:29)
[2016-08-02 00:42] VITALS: BP 142/72; PULSE 72; RESP 20; O2SAT 98
[2016-08-02 05:20] VITALS: PULSE 81; RESP 21; O2SAT 96
[2016-08-02] MEDS: cefTRIAXone Inj 2,000 MG in Dextrose 5% Minibag Plus 50 ML IV SCH (05:34)
--- NOTE | 2016-08-02 06:00 | NUR ---
Voiding/activity Patient reports improvement voiding. voiding output increased to 425mls. patient denies pain/discomfort with voiding. IVF infusing at 30mls/hr. vitals stable. patient up to bedside using urinal independently. Patient ambulated down hallway with , steady gait observed. tolerated activity well.
--- NOTE | 2016-08-02 06:07 | NUR ---
Refusal of BP Patient refused to have AM BP taken. patient stated that BP cuff was too tight and was killing his arm. BP cuff shows 180 pressure. BP cuff released immediately after patient complained. patient agreed to try one more time. Patient again complained about the cuff being too tight. patient pumped his fists the BP cuff was reading 90 pressure and kept increasing due to patient pumping his fist. informed patient that when he pumps his fist it is causing the machine to pump up again. blood pressure cuff pressure released patient reported that it was hurting him and he was uncomfortable. Patient refused to have me complete a manual blood pressure at this time. patient not having any s/s of hypo/hypertenstion will continue to monitor.
[2016-08-02] MEDS: Insulin LISPRO 300 Unit/3 mL Inj SUBQ SCH ×2 (08:00→12:00)
[2016-08-02] MEDS: Pantoprazole 40 mg ER24 Tablet PO SCH (08:14)
[2016-08-02] MEDS: predniSONE 1 mg Tablet PO SCH (08:15)
[2016-08-02 08:26] LABS: BASOPHILS % (AUTO) 0.3 % (0-3); EOSINOPHILS % (AUTO) 3.9 % (0-5); MONOCYTES % (AUTO) 12.5 % (4-12); Mean Corpuscular Hemoglobin 27.8 pg (27.0-35.0); Mean Corpuscular Volume 84.8 fL (81-100); NEUTROPHILS % (AUTO) 66.3 % (40-74); Platelet Count 182 bil/L (150-400)
[2016-08-02 08:34] LABS: Magnesium 1.7 mg/dL (1.6-2.6)
[2016-08-02 09:27] VITALS: BP 151/76; PULSE 70; RESP 18; O2SAT 98
[2016-08-02] MEDS: 0.9% Sodium Chloride 250 ML IV SCH (09:28)
[2016-08-02 09:58] VITALS: PULSE 78
[2016-08-02] MEDS ORDERED: Potassium Chloride 20 mEq SR Tablet PO ONE (10:10)
[2016-08-02] MEDS ORDERED: KCl 40 mEq/D5W 500 mL 40 MEQ in IV Premix 500 EACH IV ONE (10:10)
[2016-08-02] MEDS ORDERED: Polyethylene Glycol (PEG) 17 Gm Powder PO PRN (12:20)
[2016-08-02] MEDS ORDERED: Alum-Mag Hydrox-Simeth 30 mL Suspension PO PRN (12:20)
[2016-08-02] MEDS ORDERED: Ondansetron 2 mg/mL 2 mL Inj IVPUSH PRN (12:20)
[2016-08-02] MEDS ORDERED: FLUC200T5 PO (13:36)
--- NOTE | 2016-08-02 13:36 | PCM.DIMED ---
Discharge Instructions Date of Service August 02, 2016 Dates of Hospitalization July 30, 2016 at 23:06 Discharge Diagnosis Discharge Diagnosis # Acute sepsis secondary to acute urinary tract infection, present on admission. # Acute [employer] urinary tract infection (UTI), present on admission # Chronic diabetes mellitus, present on admission. - HgA1C 8.4 # Chronic adrenal insufficiency. Present on admission. # Chronic benign prostatic hypertrophy (BPH), present on admission. Active. # Significant weight loss, present on admission. Active. - Recommend close followup with primary care provider for further workup # Chronic obstructive sleep apnea on home CPAP, present on admission. Diet Discharge Diet: Low fat, Low Sodium, Heart Healthy, Diabetic Activity Discharge Activity: No restrictions Call your provider Call your provider for: Fever or Chills, Shortness of breath, Vomitting, Excessive diarrhea Patient Instructions Patient Instructions Seek immediate medical attention if any new or worsening signs or symptoms occur. Follow-up plan 1. Followup with your primary care provider and urologist in 1-2 weeks. Tex Beasley August 02, 2016 13:36
[2016-08-02] MEDS ORDERED: TAMS0.4C98 PO (13:44)
--- NOTE | 2016-08-02 14:20 | NUR ---
Social Work-Discharge: Data:EMR Reviewed. Pt is on day 3 of hospitalization for sepsis and UTI per H&P. Pt is medically cleared for discharge and is independent at baseline. Pt has been up independent in his room. ST has cleared pt for home. Pt's to provide transport home. No anticipated discharge needs. Assessment:Pt who is independent at baseline. Plan:Pt to discharge back to [facility] via POV. No anticipated discharge needs. AUGUSTINE Lilly
--- NOTE | 2016-08-02 15:10 | NUR ---
Discharge Pt discharged at this time. All belongings gathered and returned to pt, VSS, no complains of increased pain or confusion. Hard copy of new prescriptions given to pt to fill. Tele monitor removed and Port de-accessed by IV therapy. Discharge packet printed and reviewed with pt and spouse. Pt taken from [facility] in wheelchair by RN to front entrance, to be transported home in private vehicle driven by spouse.
--- NOTE | 2016-08-02 17:15 | CONS ---
[address] [address] CONSULTATION REPORT PATIENT: CHELSEA HILARIO : 1940 MR#: [id number] ADMIT: 07/30/2016 JOB ID: [id number] DATE OF SERVICE: 08/02/[address] Beasley for this timely consult. REASON FOR CONSULTATION: Dana pyelonephritis. 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 He was up visiting a relative of his 's in our local area over the past week or so when he developed the onset about five days prior to his admission on July 31 of severe dysuria, urgency, and frequency. This gradually worsened and became associated with fevers, chills and eventually delirium. There may also have been some component of nausea. This led to his admission on July 31 with consideration of complicated urinary tract infection with mental status changes. The patient was initiated on broad-spectrum antibiotics appropriate for urinary tract infections and slowly improved. Interestingly, it turned out that his only positive in the urine culture was Dana albicans and ID is consulted for that. The patient was started on fluconazole after it was recognized it was Dana in his urine but interestingly, he was already getting better by that point. He denies any associated sore throat, pulmonary symptoms, or GI symptoms. Note that the patient is status post colon cancer surgery with formation of a colostomy about three years ago and more recently, he underwent an ERCP with sphincterotomy for retained common duct stones related to cholecystectomy some decade ago. Since the admission two days ago, the patient has dramatically improved. He no longer has any fevers, chills, or sweats. His dysuria is down to minimal levels as is his urgency and frequency and his mental status has returned completely to normal. He is now quite insistent on getting out of the hospital as soon as possible, one way or another, and ID was consulted regarding antibiotic management. PAST MEDICAL HISTORY: 1. Colon cancer, status post formation of colostomy. 2. Status post cholecystectomy about 10 years ago, and more recently, ERCP with sphincterotomy for retained stones, now asymptomatic. 3. History of urinary tract infection. The details and frequency of these processes are unclear, but the patient's says she believes he had some Cipro about a month or two ago for a urinary tract infection which apparently had very little in the way of symptoms. 4. Adrenal insufficiency. 5. Diabetes mellitus. 6. Obstructive sleep apnea. 7. Polycythemia vera. SOCIAL HISTORY: The patient is a nonsmoker, nondrinker. He has never lived outside the [place]. 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 FAMILY HISTORY: Negative for TB in first- or second-degree relatives. REVIEW OF SYSTEMS: The patient has no headache, sinus complaints, eye complaints, sore throat, cough, shortness of breath, chest pain, nausea, vomiting, or diarrhea. His dysuria has diminished. He has no swelling in his lower extremities and no particular joint pain. Remainder of the review of systems is negative. PHYSICAL EXAMINATION: Reveals an afebrile gentleman. He was 38.0 when he was in the ED on the evening of the . Since then, he has been afebrile, now 37.3, pulse 78, respiratory rate 18, blood pressure 151/76, saturating well on room air. No acute distress. Eyes: Mental status is clear. No head trauma. Eyes without conjunctivitis or scleral icterus. Oral cavity without thrush or hairy leukoplakia. Neck supple. Lungs clear. Cardiac tones with a 2/6 murmur heard best in the aortic area. Radiates across the precordium, however. No diastolic murmur. Abdomen without notable abnormality except for the presence of a colostomy in the right lower quadrant. Otherwise nontender. No suprapubic fullness. No Estrella catheter at this point. No flank tenderness. His back is straight and without notable abnormality. Lower extremities without synovitis, cellulitis, or edema. There is no synovitis noted anywhere, no lymphadenopathy noted anywhere. Neurologically, the patient is completely intact. LABORATORIES: Include a white count 11,000 when he came in, now 6. Normal diff is noted. Creatinine 0.6. LFTs are normal. Urinalysis: Greater than 50 white cells. Urine culture grew Dana albicans and nothing else. Blood cultures are negative. IMAGING: Includes a chest x-ray that was basically negative except for some patchy atelectasis in the right base. I personally reviewed that film on the ultrasound of the kidneys. There is a cyst seen bilaterally. IMPRESSION: This is a patient who seems to have a true Dana urinary tract infection. When Dana is found in the urine, it is usually a colonizer contaminant, but in this diabetic gentleman who has recently received a course of Cipro and who has underlying changes in his anatomy related to his colon surgery, I think this is a likely true pathogen. The patient had a lot of urinary symptoms including fevers, chills, dysuria, urgency, frequency, and delirium. Interestingly, he resolved before fluconazole was added to his regimen which may be due to hydration and other factors but it is curious. RECOMMENDATIONS: 1. Fluconazole 400 mg once a day for two weeks. 2. This patient should follow up with his primary care doctor in [place]. 3. He is cleared for discharge from my point of view. 4. We checked for drug interactions and aside from the nausea medicines that are prescribed p.r.n. here, there should not be any issues.
--- NOTE | 2016-08-02 20:35 | PCM.DC.MED ---
Discharge Summary Date of Service August 02, 2016 Dates of Hospitalization Date of Hospital Admission July 30, 2016 at 23:06 Date of Discharge: August 02, 2016 Providers: Admitting Physician: Benedicto Cullen MD Primary Care Physician: Nopbhavana Attending Physician: Benedicto Cullen MD Diagnosis at Time of Discharge Diagnosis at Time of Discharge # Acute sepsis secondary to acute urinary tract infection, present on admission. # Acute SAIDA ALBICANS urinary tract infection (UTI), present on admission # Chronic diabetes mellitus, present on admission. - HgA1C 8.4 # Chronic adrenal insufficiency. Present on admission. # Chronic benign prostatic hypertrophy (BPH), present on admission. Active. # Significant weight loss, present on admission. Active. - Recommend close followup with primary care provider for further workup # Chronic obstructive sleep apnea on home CPAP, present on admission. Consultations 1. ID (Dr. Mitchell) Procedures XRay, CTs & MRIs X-RAY CHEST ONE VIEW, PORTABLE IMPRESSION: Patchy opacity in left lung base which represent atelectasis or pneumonia. Please correlate with clinical and laboratory data. Dictated by: Marzena Peña MD, PhD on 07/30/2016 at 18:56 Other Diagnostics Retroperitoneal ultrasound 08/01/16 IMPRESSION: Bilateral renal cysts. Dictated by: Marzena Peña MD, PhD on 08/01/2016 at 17:04 Approved by: Marzena Peña MD, PhD on 08/01/2016 at 17:06 Brief History As noted in H&P by Dr. Murillo: Mr. Adal Robert is a very pleasant 76-year-old gentleman presenting to the emergency department with complaints of dysuria for 5 days. He reports fevers and chills and waxing and waning mental status consistent with delirium, according to his who is a nurse. He reports long history of difficult to control urinary tract infections. He is followed by urology from [facility], Dr. Newman, urologist for his UTI, . Patient states that one month ago following complicated endoscopic removal of inflamed choledocholithiasis status post cholecystectomy, he develops another UTI for which she was treated in [facility]. He has a complicated past medical history significant for colon cancer with total colectomy and ostomy roughly 18 months ago with unspecified rounds of chemotherapy. Residual adrenal insufficiency, He also has insulin requiring diabetes with very poor control over the past year with blood sugars as high as 240 daily. He reports confusion , significant dysuria, abdominal pain, fevers, mild nausea. He denies vomiting , syncope, chest pain, shortness of breath, change in ostomy output, hematochezia, hematemesis, hematuria. He also reports significant weight loss of 30 pounds over the past 3 months "without trying." He admits that his appetite has significantly decreased since his total colectomy roughly 18 months ago. Upon admission to this [facility] emergency department vitals are as follows; temperature 38.0, pulse of 121, respiration rate 12, blood pressure 107/70, pulse ox 95% on room air. White count 11.2, hemoglobin 12.2, platelets 174, neuts 82.1, lymph 7.6. Sodium 137 potassium 4.1 chloride 101 carbon dioxide 22 16 creatinine 0.88 glucose 200, lactic acid 1.0 AST ALT alkaline phosphatase normal. UA; yellow, turbid, urine protein 30, moderate occult blood, large leukocyte esterase, greater than 50 white cell count, occasional epithelials, no bacteria, no casts, many yeast. The patient receive IV fluids, Tylenol, he was covered with ceftriaxone with laboratories and clinical history again suggesting UTI (greater than 50 white cells per high-power field, although there is no overt bacteria on urinalysis). Additionally given his history of adrenal insufficiency received empiric hydrocortisone. He has had no hypotension or overt hemodynamic instability beyond mild tachycardia which is improving with fluids. Hospital Course # Acute sepsis secondary to acute urinary tract infection, present on admission. Clinically resolved. # Acute SAIDA ALBICANS urinary tract infection (UTI), present on admission # Chronic diabetes mellitus, present on admission. - HgA1C 8.4 # Chronic adrenal insufficiency. Present on admission. # Significant weight loss, present on admission. Active. - Recommend close followup with primary care provider for further workup # Chronic obstructive sleep apnea on home CPAP, present on admission. # Residual adrenal insufficiency. Present on admission. Active. - Patient received hydrocortisone 100 mg stress dose in the ED. - Continue home prednisone regimen. (1 mg and 2 mg alternating doses) # BPH, present on admission. Active. - Continue home finasteride 5 mg daily. - Tamsulosin 0.8 Mg Daily during this hospital By day of d/c patient reports significant improvement in symptoms and demanding d/c home and threatening leaving AMA if not discharged. Exam Vital Signs (Last) Date Time Temp Pulse Resp B/P Pulse Ox O2 Delivery O2 Flow Rate FiO2 08/02/16 09:58 78 08/02/16 09:27 37.3 18 151/76 98 Room Air 08/01/16 04:27 2.00 Exam Lungs CTA bilat. CV: RRR. Test 07/30/16 18:30 07/30/16 20:50 08/01/16 09:15 08/02/16 05:40 Hemoglobin A1c 8.4% (4.8-5.6) Lactic Acid Level 1.0mmol/L (0.4-2.0) Total Bilirubin 0.8mg/dL (0.0-1.2) Aspartate Amino Transf (AST/SGOT) 23U/L (0-50) Alanine Aminotransferase (ALT/SGPT) 18U/L (0-44) Alkaline Phosphatase 156U/L (25-160) Total Protein 6.7g/dL (6.4-8.4) Albumin 3.4g/dL (3.4-5.0) Urine Color Yellow (YELLOW) Urine Appearance Turbid (CLEAR,HAZY) Urine pH 5.0 (5.0-8.0) Urine Specific [place] 1.020 (1.003-1.035) Urine Protein 30mg/dL (NEG,TRACE) Urine Glucose (UA) Negativemg/dL (NEGATIVE) Urine Ketones Negativemg/dL (NEGATIVE) Urine Occult Blood Moderate (NEGATIVE) Urine Nitrite Negative (NEGATIVE) Urine Bilirubin Negative (NEGATIVE) Urine Urobilinogen Normalmg/dL (NORMAL) Urine Leukocyte Esterase Large (NEGATIVE) Urine RBC 0-2/hpf (0-2) Urine WBC >50/hpf (0-5) Urine Epithelial Cells Occasional/hpf (NONE-MOD) Urine Crystals None seen (NONE SEEN) Urine Bacteria None/hpf (NONE-FEW) Urine Hyaline Casts None/lpf (NONE) Urine Granular Casts None seen (NONE SEEN) Urine Waxy Casts None seen (NONE SEEN) Urine Red Blood Cell Casts None seen (NONE SEEN) Urine White Blood Cell Casts None seen (NONE SEEN) Urine Mucus None seen (None Seen) Urine Trichomonas None seen (NONE SEEN) Urine Yeast Many (NONE SEEN) Urinalysis Comment None Urine Culture Reflexed Indicated White Blood Count 6.1th/mm3 (3.8-10.1) Red Blood Count 3.81mil/mm3 (4.40-5.80) Hemoglobin 10.6g/dL (13.8-17.2) Hematocrit 32.3% (41.0-50.0) Mean Corpuscular Volume 84.8fL (81-100) Mean Corpuscular Hemoglobin 27.8pg (27.0-35.0) Mean Corpuscular Hemoglobin Concent 32.8% (32.0-37.0) Red Cell Distribution Width 14.0% (12.3-15.4) Platelet Count 182bil/L (150-400) Neutrophils (%) (Auto) 66.3% (40-74) Lymphocytes (%) (Auto) 16.8% (14-46) Monocytes (%) (Auto) 12.5% (4-12) Eosinophils (%) (Auto) 3.9% (0-5) Basophils (%) (Auto) 0.3% (0-3) Hold Purple Top Tube Received (Received) Sodium Level 143mEq/L (134-144) Potassium Level 3.2mEq/L (3.5-5.2) Chloride Level 106mEq/L (97-108) Carbon Dioxide Level 23mmol/L (18-29) Blood Urea Nitrogen 8mg/dL (8-27) Creatinine 0.60mg/dL (0.76-1.27) Estimat Glomerular Filtration Rate 140mL/min (>59) Glucose Level 158mg/dL (60-99) Calcium Level 8.5mg/dL (8.5-10.1) Magnesium Level 1.7mg/dL (1.6-2.6) Hold [place] Top Tube Received (Received) Discharge Medications Discharge Medications Aspirin (Aspirin) 325 Mg Tablet 325 MG PO DAILY (Reported) Finasteride (Finasteride) 5 Mg Tablet 5 MG PO DAILY (Reported) Fluconazole (Fluconazole) 200 Mg Tablet 400 MG PO DAILY Prescribed by: TEX SYLVESTER MD Insulin Glargine (Lantus U100 Solostar Insulin Pen) 100 Unit/1 Ml Insuln.pen 44 UNIT SUBQ HS (Reported) Metoprolol Tartrate (Metoprolol Tartrate) 25 Mg Tablet 25 MG PO BID (Reported) Mirtazapine (Mirtazapine) 15 Mg Tablet 15 MG PO HS (Reported) Multivitamin (Multivitamins) 1 Each Capsule 1 EACH PO DAILY (Reported) Pantoprazole DR (Pantoprazole DR) 40 Mg Tablet.dr 40 MG PO QAM (Reported) PredniSONE (PredniSONE) 1 Mg Tab 1 MG PO Q2DAY (Reported) alternate with 2mg every other day PredniSONE (PredniSONE) 1 Mg Tab 2 MG PO Q2DAY (Reported) alternate with 1mg every other day Tamsulosin (Flomax) 0.4 Mg Capsule 0.4 MG PO DAILY (Reported) Tamsulosin (Flomax) 0.4 Mg Capsule 0.8 MG PO DAILY Prescribed by: TEX SYLVESTER MD As needed Simethicone (Gas-X) 80 Mg Tablet 80 MG PO QID PRN PRN For Epigastric Distress ( Reported) Tramadol (Tramadol) 50 Mg Tablet 50-100 MG PO TID PRN PRN For Pain (Reported) Followup Plan Disposition: Home Follow-up plan 1. Followup with your primary care provider and urologist in 1-2 weeks. Discharge Diet: Low fat, Low Sodium, Heart Healthy, Diabetic Discharge Activity: No restrictions Patient Instructions Seek immediate medical attention if any new or worsening signs or symptoms occur. Tex Sylvester August 02, 2016 20:35
== END 2016-08-02 15:19 | disposition home or self-care (01) | DRG 872 ==
LOC: SED 16:21 → MPC 23:06
PROVIDERS: ADMIT Hospitalist; ATTEND Hospitalist
DX: A41.9 Sepsis, unspecified organism (principal); N39.0 Urinary tract infection, site not specified; E27.40 Unspecified adrenocortical insufficiency; E11.65 Type 2 diabetes mellitus with hyperglycemia; R63.4 Abnormal weight loss; D45 Polycythemia vera; B96.89 Other specified bacterial agents as the cause of diseases classified elsewhere; N40.0 Benign prostatic hyperplasia without lower urinary tract symptoms; G47.33 Obstructive sleep apnea (adult) (pediatric); Z68.28 Body mass index [BMI] 28.0-28.9, adult; Z79.52 Long term (current) use of systemic steroids; Z79.4 Long term (current) use of insulin; Z90.49 Acquired absence of other specified parts of digestive tract; Z85.038 Personal history of other malignant neoplasm of large intestine; Z93.3 Colostomy status; Z79.82 Long term (current) use of aspirin